=== PATIENT | male | born 1970 | race Caucasian/White ===

== ENCOUNTER 2021-11-25 08:49 | Day surgery (SDC) | payer BC ==
[~2021-11-25 08:49] MED LIST: Lactated Ringers 1,000 ML IV SCH
[2021-11-25] MEDS ORDERED: Citric Acid/Sodium Citrate Solution 30 ML Cup ONE (09:40)
[2021-11-25] MEDS: Citric Acid/Sodium Citrate Solution 30 ML Cup PO ONE ×2 (09:42→09:45)
[2021-11-25] MEDS ORDERED: fentaNYL 100 MCG/2 ML SDV ONE (09:44)
[2021-11-25] MEDS ORDERED: Propofol 200 MG/20 ML SDV ONE (09:44)
[2021-11-25 10:37] VITALS: BP 107/68; PULSE 61
== END 2021-11-25 11:40 | disposition home or self-care (01) ==
LOC: VM.SDS 08:49
PROVIDERS: ATTEND Surgery
DX: K22.70 Barrett's esophagus without dysplasia (principal); K21.00 Gastro-esophageal reflux disease with esophagitis, without bleeding; E66.01 Morbid (severe) obesity due to excess calories; Z88.5 Allergy status to narcotic agent; Z79.899 Other long term (current) drug therapy
CPT/HCPCS: 00731; A9270-GY; J2704; J3010; J7120

== ENCOUNTER 2023-05-12 16:19 | Emergency (ER) | payer BC ==
[2023-05-12] MEDS: fentaNYL 50 MCG/ML SDV IVPUSH ONE ×6 (16:39→21:15)
[2023-05-12] MEDS: Sodium Chloride 0.9% 1,000 ML IV SCH (16:45)
[2023-05-12 16:51] LABS: BASOPHILS ABSOLUTE AUTO 0.1 x10^3/uL (0.0-0.2); BASOPHILS PERCENT AUTO 0.6 % (0.2-1.2); EOSINOPHILS ABSOLUTE AUTO 0.1 x10^3/uL (0.0-0.5); EOSINOPHILS PERCENT AUTO 0.7 % (0.0-4.0); HEMOGLOBIN 16.7 g/dL (14.0-18.0); IMMATURE GRAN ABSOLUTE AUTO 0.02 x10^3/uL (0.00-0.07); LYMPHOCYTES ABSOLUTE AUTO 2.4 x10^3/uL (1.0-4.8); LYMPHOCYTES PERCENT AUTO 25.9 % (25.0-50.0); MEAN CORPUSCULAR HEMOGLOBIN 32.1 pg (26.0-32.0); MEAN CORPUSCULAR HGB CONC 34.8 g/dL (32.0-36.0); MEAN CORPUSCULAR VOLUME 92.3 fL (78.0-93.0); MONOCYTES ABSOLUTE AUTO 0.6 x10^3/uL (0.0-0.8); MONOCYTES PERCENT AUTO 6.7 % (2.0-11.0); NEUTROPHILS ABSOLUTE AUTO 6.2 x10^3/uL (1.8-7.7); NEUTROPHILS PERCENT AUTO 65.9 % (50.0-80.0); PLATELET COUNT,PLT 251 x10^3/uL (130-400); WHITE BLOOD CELL COUNT,WBC 9.4 x10^3/uL (4.0-10.0)
[2023-05-12 17:13] LABS: INR 0.9 (2.0-3.5); PROTHROMBIN TIME 10.2 SEC (9.5-12.2)
[2023-05-12 17:14] LABS: A/G RATIO 1.11; ALANINE AMINOTRANSFERASE,ALT 31 U/L (16-63); ALBUMIN 4.1 g/dL (3.4-5.0); ALKALINE PHOSPHATASE 80 U/L (46-116); ANION GAP 14.3 mmol/L (5-15); ASPARTATE AMNIOTRANSFERASE,AST 16 U/L (15-37); BILIRUBIN TOTAL 0.8 mg/dL (0.2-1.0); BLOOD UREA NITROGEN,BUN 20 mg/dL (7-18); CALCIUM 8.9 mg/dL (8.5-10.1); CARBON DIOXIDE,CO2 26 mmol/L (21-32); CHLORIDE,CL 107 mmol/L (98-107); CREATININE 1.2 mg/dL (0.70-1.30); ESTIMATED GFR 74 mL/min (>=60); GLUCOSE RANDOM 132 mg/dL (70-99); POTASSIUM,K 4.3 mmol/L (3.5-5.1); PROTEIN TOTAL,TP 7.8 g/dL (6.4-8.2); SODIUM,NA 143 mmol/L (136-145)
[2023-05-12] MEDS: Diphtheria,Pertussis(Acell),Tetanus Vaccine 0.5 ML Syringe IM ONE (19:01)
[2023-05-12] MEDS: ceFAZolin 1 GM Vial IVPUSH ONE (19:02)
== END 2023-05-12 21:20 | disposition short-term general hospital (02) ==
LOC: VM.ED 16:19
DX: S52.92XA Unspecified fracture of left forearm, initial encounter for closed fracture (principal); S92.002A Unspecified fracture of left calcaneus, initial encounter for closed fracture; S92.001A Unspecified fracture of right calcaneus, initial encounter for closed fracture; S92.351A Displaced fracture of fifth metatarsal bone, right foot, initial encounter for closed fracture; Z88.5 Allergy status to narcotic agent; W11.XXXA Fall on and from ladder, initial encounter
CPT/HCPCS: 29125; 29515; 73090; 73610; 73630; 80053; 85025; 85610; 85730; 90471; 90715; 96361; 96374; 96375; 96376; 99284; 99285; J0690; J3010; J7030

== ENCOUNTER 2023-05-19 15:34 | Inpatient (IN) | payer SELFPAY ==
[2023-05-19] MEDS ORDERED: Enoxaparin 30 MG/0.3 ML Syringe SUBCUT SCH (17:30)
[2023-05-19] MEDS ORDERED: Naloxone 0.4 MG/ML SDV NAS PRN (17:31)
[2023-05-19] MEDS ORDERED: Ondansetron 4 MG Tab.DIS PO PRN (17:31)
[2023-05-19] MEDS ORDERED: Menthol Lozenge PO PRN (17:31)
[2023-05-19] MEDS ORDERED: Loratadine 10 MG Tab PO PRN (17:31)
[2023-05-19] MEDS: oxyCODONE 5 MG Tab PO PRN ×2 (18:27→22:17)
[2023-05-19] MEDS: Omeprazole 20 MG Cap.CR PO SCH (22:05)
[2023-05-19] MEDS: Sennosides/Docusate Sodium 50-8.6 MG Tab PO SCH (22:06)
[2023-05-19] MEDS: Enoxaparin 30 MG/0.3 ML Syringe SUBCUT SCH (22:06)
[2023-05-19] MEDS: Acetaminophen 500 MG Tab PO SCH (22:06)
[2023-05-19] MEDS: Polyethylene Glycol 3350 Powder 17 GM Packet PO SCH (22:09)
[2023-05-20] MEDS: oxyCODONE 5 MG Tab PO PRN ×5 (03:03→21:09)
[2023-05-20 06:41] LABS: HEMOGLOBIN 11.4 g/dL (14.0-18.0); MEAN CORPUSCULAR HEMOGLOBIN 32.3 pg (26.0-32.0); MEAN CORPUSCULAR HGB CONC 33.5 g/dL (32.0-36.0); MEAN CORPUSCULAR VOLUME 96.3 fL (78.0-93.0); RED BLOOD CELL COUNT 3.53 x10^6/uL (4.5-6.0); WHITE BLOOD CELL COUNT,WBC 6.9 x10^3/uL (4.0-10.0)
[2023-05-20] MEDS: Sennosides/Docusate Sodium 50-8.6 MG Tab PO SCH ×2 (08:40→21:08)
[2023-05-20] MEDS: tiZANidine 4 MG Tab PO SCH (08:41)
[2023-05-20] MEDS: Ascorbic Acid 500 MG Tab PO SCH (08:41)
[2023-05-20] MEDS: Acetaminophen 500 MG Tab PO SCH ×3 (08:42→21:07)
[2023-05-20] MEDS: Cholecalciferol (Vitamin D3) 25 MCG Tab PO SCH (08:42)
[2023-05-20] MEDS: Enoxaparin 30 MG/0.3 ML Syringe SUBCUT SCH ×2 (08:43→21:06)
[2023-05-20] MEDS: Polyethylene Glycol 3350 Powder 17 GM Packet PO SCH ×2 (08:43→22:19)
[2023-05-20] MEDS: Omeprazole 20 MG Cap.CR PO SCH (21:08)
[2023-05-21] MEDS: oxyCODONE 5 MG Tab PO PRN ×5 (02:03→20:15)
[2023-05-21] MEDS: Ascorbic Acid 500 MG Tab PO SCH (08:32)
[2023-05-21] MEDS: Polyethylene Glycol 3350 Powder 17 GM Packet PO SCH ×3 (08:32→20:14)
[2023-05-21] MEDS: tiZANidine 4 MG Tab PO SCH (08:32)
[2023-05-21] MEDS: Enoxaparin 30 MG/0.3 ML Syringe SUBCUT SCH ×2 (08:32→20:14)
[2023-05-21] MEDS: Acetaminophen 500 MG Tab PO SCH ×3 (08:32→20:14)
[2023-05-21] MEDS: Cholecalciferol (Vitamin D3) 25 MCG Tab PO SCH (08:32)
[2023-05-21] MEDS: Sennosides/Docusate Sodium 50-8.6 MG Tab PO SCH (20:14)
[2023-05-21] MEDS: Omeprazole 20 MG Cap.CR PO SCH (20:14)
[2023-05-22] MEDS: oxyCODONE 5 MG Tab PO PRN ×3 (00:05→08:45)
[2023-05-22] MEDS: Polyethylene Glycol 3350 Powder 17 GM Packet PO SCH ×2 (08:44→21:56)
[2023-05-22] MEDS: Cholecalciferol (Vitamin D3) 25 MCG Tab PO SCH (08:46)
[2023-05-22] MEDS: tiZANidine 4 MG Tab PO SCH (08:46)
[2023-05-22] MEDS: Ascorbic Acid 500 MG Tab PO SCH (08:46)
[2023-05-22] MEDS: Acetaminophen 500 MG Tab PO SCH ×3 (08:46→21:57)
[2023-05-22] MEDS: Enoxaparin 30 MG/0.3 ML Syringe SUBCUT SCH ×2 (08:47→21:56)
[2023-05-22] MEDS: Sennosides/Docusate Sodium 50-8.6 MG Tab PO SCH (21:56)
[2023-05-22] MEDS: Omeprazole 20 MG Cap.CR PO SCH (21:56)
[2023-05-23 07:54] LABS: HEMATOCRIT 36.9 % (40.0-52.0); HEMOGLOBIN 12.3 g/dL (14.0-18.0); MEAN CORPUSCULAR HEMOGLOBIN 31.7 pg (26.0-32.0); MEAN CORPUSCULAR HGB CONC 33.3 g/dL (32.0-36.0); MEAN CORPUSCULAR VOLUME 95.1 fL (78.0-93.0); RED BLOOD CELL COUNT 3.88 x10^6/uL (4.5-6.0); WHITE BLOOD CELL COUNT,WBC 8.1 x10^3/uL (4.0-10.0)
[2023-05-23] MEDS: Acetaminophen 500 MG Tab PO SCH ×3 (08:34→21:04)
[2023-05-23] MEDS: Ascorbic Acid 500 MG Tab PO SCH (08:37)
[2023-05-23] MEDS: Cholecalciferol (Vitamin D3) 25 MCG Tab PO SCH (08:38)
[2023-05-23] MEDS: tiZANidine 4 MG Tab PO SCH (08:38)
[2023-05-23] MEDS: Enoxaparin 30 MG/0.3 ML Syringe SUBCUT SCH ×2 (08:40→21:06)
[2023-05-23] MEDS: Polyethylene Glycol 3350 Powder 17 GM Packet PO SCH ×2 (08:41→21:06)
[2023-05-23] MEDS: Omeprazole 20 MG Cap.CR PO SCH (21:05)
[2023-05-23] MEDS: Sennosides/Docusate Sodium 50-8.6 MG Tab PO SCH (21:05)
[2023-05-24] MEDS: tiZANidine 4 MG Tab PO SCH (09:56)
[2023-05-24] MEDS: Ascorbic Acid 500 MG Tab PO SCH (09:56)
[2023-05-24] MEDS: Cholecalciferol (Vitamin D3) 25 MCG Tab PO SCH (09:57)
[2023-05-24] MEDS: Acetaminophen 500 MG Tab PO SCH ×3 (09:57→21:15)
[2023-05-24] MEDS: Polyethylene Glycol 3350 Powder 17 GM Packet PO SCH ×2 (09:58→21:16)
[2023-05-24] MEDS: Enoxaparin 30 MG/0.3 ML Syringe SUBCUT SCH ×2 (10:00→21:17)
[2023-05-24] MEDS: Sennosides/Docusate Sodium 50-8.6 MG Tab PO SCH (21:15)
[2023-05-24] MEDS: Omeprazole 20 MG Cap.CR PO SCH (21:15)
[2023-05-25] MEDS: Ascorbic Acid 500 MG Tab PO SCH (08:23)
[2023-05-25] MEDS: Cholecalciferol (Vitamin D3) 25 MCG Tab PO SCH (08:23)
[2023-05-25] MEDS: tiZANidine 4 MG Tab PO SCH (08:23)
[2023-05-25] MEDS: Acetaminophen 500 MG Tab PO SCH (08:24)
[2023-05-25] MEDS: Enoxaparin 30 MG/0.3 ML Syringe SUBCUT SCH ×2 (08:26→21:29)
[2023-05-25] MEDS: Polyethylene Glycol 3350 Powder 17 GM Packet PO SCH ×2 (08:30→21:30)
[2023-05-25] MEDS: Acetaminophen 650 MG Tab.ER PO SCH ×2 (16:02→23:17)
[2023-05-25] MEDS: Omeprazole 20 MG Cap.CR PO SCH (21:29)
[2023-05-25] MEDS: Sennosides/Docusate Sodium 50-8.6 MG Tab PO SCH (21:29)
[2023-05-26 07:00] LABS: HEMATOCRIT 37.7 % (40.0-52.0); HEMOGLOBIN 12.9 g/dL (14.0-18.0); MEAN CORPUSCULAR HEMOGLOBIN 32.5 pg (26.0-32.0); MEAN CORPUSCULAR HGB CONC 34.2 g/dL (32.0-36.0); RED BLOOD CELL COUNT 3.97 x10^6/uL (4.5-6.0); WHITE BLOOD CELL COUNT,WBC 7.1 x10^3/uL (4.0-10.0)
[2023-05-26] MEDS: tiZANidine 4 MG Tab PO SCH (09:03)
[2023-05-26] MEDS: Acetaminophen 650 MG Tab.ER PO SCH ×3 (09:03→23:51)
[2023-05-26] MEDS: Cholecalciferol (Vitamin D3) 25 MCG Tab PO SCH (09:04)
[2023-05-26] MEDS: Ascorbic Acid 500 MG Tab PO SCH (09:04)
[2023-05-26] MEDS: Polyethylene Glycol 3350 Powder 17 GM Packet PO SCH ×2 (09:04→20:22)
[2023-05-26] MEDS: Enoxaparin 30 MG/0.3 ML Syringe SUBCUT SCH ×2 (09:04→20:18)
[2023-05-26] MEDS: Omeprazole 20 MG Cap.CR PO SCH (20:18)
[2023-05-26] MEDS: Sennosides/Docusate Sodium 50-8.6 MG Tab PO SCH (20:22)
[2023-05-27] MEDS: Acetaminophen 650 MG Tab.ER PO SCH ×3 (08:04→23:14)
[2023-05-27] MEDS: Enoxaparin 30 MG/0.3 ML Syringe SUBCUT SCH ×2 (08:05→20:57)
[2023-05-27] MEDS: tiZANidine 4 MG Tab PO SCH (08:05)
[2023-05-27] MEDS: Polyethylene Glycol 3350 Powder 17 GM Packet PO SCH ×2 (08:06→21:38)
[2023-05-27] MEDS: Cholecalciferol (Vitamin D3) 25 MCG Tab PO SCH (08:06)
[2023-05-27] MEDS: Ascorbic Acid 500 MG Tab PO SCH (08:06)
[2023-05-27] MEDS: Omeprazole 20 MG Cap.CR PO SCH (20:57)
[2023-05-27] MEDS: Sennosides/Docusate Sodium 50-8.6 MG Tab PO SCH (21:38)
[2023-05-28] MEDS: Acetaminophen 650 MG Tab.ER PO SCH ×2 (08:08→17:00)
[2023-05-28] MEDS: Cholecalciferol (Vitamin D3) 25 MCG Tab PO SCH (08:09)
[2023-05-28] MEDS: Ascorbic Acid 500 MG Tab PO SCH (08:09)
[2023-05-28] MEDS: Polyethylene Glycol 3350 Powder 17 GM Packet PO SCH ×2 (08:10→20:50)
[2023-05-28] MEDS: tiZANidine 4 MG Tab PO SCH (08:10)
[2023-05-28] MEDS: Enoxaparin 30 MG/0.3 ML Syringe SUBCUT SCH ×2 (08:10→20:50)
[2023-05-28] MEDS: Omeprazole 20 MG Cap.CR PO SCH (20:50)
[2023-05-28] MEDS: Sennosides/Docusate Sodium 50-8.6 MG Tab PO SCH (21:23)
[2023-05-29] MEDS: Acetaminophen 650 MG Tab.ER PO SCH ×4 (00:31→23:50)
[2023-05-29 06:56] LABS: HEMATOCRIT 38.3 % (40.0-52.0); HEMOGLOBIN 12.6 g/dL (14.0-18.0); MEAN CORPUSCULAR HEMOGLOBIN 31.7 pg (26.0-32.0); MEAN CORPUSCULAR HGB CONC 32.9 g/dL (32.0-36.0); MEAN CORPUSCULAR VOLUME 96.5 fL (78.0-93.0); RED BLOOD CELL COUNT 3.97 x10^6/uL (4.5-6.0); WHITE BLOOD CELL COUNT,WBC 8.1 x10^3/uL (4.0-10.0)
[2023-05-29] MEDS: tiZANidine 4 MG Tab PO SCH (09:34)
[2023-05-29] MEDS: Ascorbic Acid 500 MG Tab PO SCH (09:35)
[2023-05-29] MEDS: Polyethylene Glycol 3350 Powder 17 GM Packet PO SCH ×2 (09:35→20:45)
[2023-05-29] MEDS: Cholecalciferol (Vitamin D3) 25 MCG Tab PO SCH (09:36)
[2023-05-29] MEDS: Enoxaparin 30 MG/0.3 ML Syringe SUBCUT SCH ×2 (09:37→20:46)
[2023-05-29] MEDS: Sennosides/Docusate Sodium 50-8.6 MG Tab PO SCH ×2 (20:46→20:52)
[2023-05-29] MEDS: Omeprazole 20 MG Cap.CR PO SCH (20:47)
[2023-05-30] MEDS: Acetaminophen 650 MG Tab.ER PO SCH ×3 (08:53→23:45)
[2023-05-30] MEDS: tiZANidine 4 MG Tab PO SCH (08:54)
[2023-05-30] MEDS: Polyethylene Glycol 3350 Powder 17 GM Packet PO SCH ×2 (08:55→21:23)
[2023-05-30] MEDS: Cholecalciferol (Vitamin D3) 25 MCG Tab PO SCH (08:55)
[2023-05-30] MEDS: Ascorbic Acid 500 MG Tab PO SCH (08:56)
[2023-05-30] MEDS: Enoxaparin 30 MG/0.3 ML Syringe SUBCUT SCH ×2 (08:57→21:25)
[2023-05-30] MEDS: Omeprazole 20 MG Cap.CR PO SCH (21:24)
[2023-05-30] MEDS: Sennosides/Docusate Sodium 50-8.6 MG Tab PO SCH (21:25)
[2023-05-31] MEDS: Acetaminophen 650 MG Tab.ER PO SCH ×3 (08:29→23:57)
[2023-05-31] MEDS: Cholecalciferol (Vitamin D3) 25 MCG Tab PO SCH (08:30)
[2023-05-31] MEDS: tiZANidine 4 MG Tab PO SCH (08:31)
[2023-05-31] MEDS: Ascorbic Acid 500 MG Tab PO SCH (08:31)
[2023-05-31] MEDS: Polyethylene Glycol 3350 Powder 17 GM Packet PO SCH ×2 (08:33→20:01)
[2023-05-31] MEDS: Enoxaparin 30 MG/0.3 ML Syringe SUBCUT SCH ×2 (08:33→20:01)
[2023-05-31] MEDS ORDERED: Sennosides/Docusate Sodium 50-8.6 MG Tab PO PRN (09:48)
[2023-05-31] MEDS: Omeprazole 20 MG Cap.CR PO SCH (20:02)
[2023-06-01 06:43] LABS: HEMATOCRIT 39.2 % (40.0-52.0); MEAN CORPUSCULAR HEMOGLOBIN 31.6 pg (26.0-32.0); MEAN CORPUSCULAR HGB CONC 33.2 g/dL (32.0-36.0); MEAN CORPUSCULAR VOLUME 95.4 fL (78.0-93.0); RED BLOOD CELL COUNT 4.11 x10^6/uL (4.5-6.0); WHITE BLOOD CELL COUNT,WBC 6.5 x10^3/uL (4.0-10.0)
[2023-06-01] MEDS: Enoxaparin 30 MG/0.3 ML Syringe SUBCUT SCH ×2 (08:32→21:28)
[2023-06-01] MEDS: tiZANidine 4 MG Tab PO SCH (08:33)
[2023-06-01] MEDS: Cholecalciferol (Vitamin D3) 25 MCG Tab PO SCH (08:34)
[2023-06-01] MEDS: Acetaminophen 650 MG Tab.ER PO SCH ×2 (08:34→17:46)
[2023-06-01] MEDS: Ascorbic Acid 500 MG Tab PO SCH (08:35)
[2023-06-01] MEDS: Omeprazole 20 MG Cap.CR PO SCH (21:28)
[2023-06-01] MEDS: Polyethylene Glycol 3350 Powder 17 GM Packet PO SCH (21:29)
[2023-06-02] MEDS: Acetaminophen 650 MG Tab.ER PO SCH ×4 (01:19→23:04)
[2023-06-02] MEDS: Enoxaparin 30 MG/0.3 ML Syringe SUBCUT SCH ×2 (08:31→21:55)
[2023-06-02] MEDS: Ascorbic Acid 500 MG Tab PO SCH (08:33)
[2023-06-02] MEDS: Cholecalciferol (Vitamin D3) 25 MCG Tab PO SCH (08:33)
[2023-06-02] MEDS: tiZANidine 4 MG Tab PO SCH (08:33)
[2023-06-02] MEDS: oxyCODONE 5 MG Tab PO PRN (20:45)
[2023-06-02] MEDS: Omeprazole 20 MG Cap.CR PO SCH (21:54)
[2023-06-02] MEDS: Polyethylene Glycol 3350 Powder 17 GM Packet PO SCH (21:56)
[2023-06-03] MEDS: oxyCODONE 5 MG Tab PO PRN (00:46)
[2023-06-03] MEDS: tiZANidine 4 MG Tab PO SCH (08:41)
[2023-06-03] MEDS: Acetaminophen 650 MG Tab.ER PO SCH ×3 (08:41→23:21)
[2023-06-03] MEDS: Cholecalciferol (Vitamin D3) 25 MCG Tab PO SCH (08:42)
[2023-06-03] MEDS: Enoxaparin 30 MG/0.3 ML Syringe SUBCUT SCH ×2 (08:42→21:10)
[2023-06-03] MEDS: Ascorbic Acid 500 MG Tab PO SCH (08:50)
[2023-06-03] MEDS: Polyethylene Glycol 3350 Powder 17 GM Packet PO SCH (21:10)
[2023-06-03] MEDS: Omeprazole 20 MG Cap.CR PO SCH (21:11)
[2023-06-04 06:45] LABS: HEMATOCRIT 39.7 % (40.0-52.0); HEMOGLOBIN 13.2 g/dL (14.0-18.0); MEAN CORPUSCULAR HEMOGLOBIN 31.5 pg (26.0-32.0); MEAN CORPUSCULAR HGB CONC 33.2 g/dL (32.0-36.0); MEAN CORPUSCULAR VOLUME 94.7 fL (78.0-93.0); RED BLOOD CELL COUNT 4.19 x10^6/uL (4.5-6.0); WHITE BLOOD CELL COUNT,WBC 7.8 x10^3/uL (4.0-10.0)
[2023-06-04] MEDS: Enoxaparin 30 MG/0.3 ML Syringe SUBCUT SCH ×3 (07:53→22:13)
[2023-06-04] MEDS: tiZANidine 4 MG Tab PO SCH (07:59)
[2023-06-04] MEDS: Acetaminophen 650 MG Tab.ER PO SCH ×3 (08:03→23:07)
[2023-06-04] MEDS: Ascorbic Acid 500 MG Tab PO SCH (08:03)
[2023-06-04] MEDS: Cholecalciferol (Vitamin D3) 25 MCG Tab PO SCH (08:04)
[2023-06-04] MEDS: Omeprazole 20 MG Cap.CR PO SCH (22:13)
[2023-06-04] MEDS: Polyethylene Glycol 3350 Powder 17 GM Packet PO SCH (22:13)
[2023-06-05] MEDS: Acetaminophen 650 MG Tab.ER PO SCH ×2 (08:20→16:15)
[2023-06-05] MEDS: Cholecalciferol (Vitamin D3) 25 MCG Tab PO SCH (08:21)
[2023-06-05] MEDS: tiZANidine 4 MG Tab PO SCH (08:24)
[2023-06-05] MEDS: Ascorbic Acid 500 MG Tab PO SCH (08:28)
[2023-06-05] MEDS: Enoxaparin 30 MG/0.3 ML Syringe SUBCUT SCH ×2 (08:29→20:32)
[2023-06-05] MEDS: Polyethylene Glycol 3350 Powder 17 GM Packet PO SCH (20:31)
[2023-06-05] MEDS: Omeprazole 20 MG Cap.CR PO SCH (20:32)
[2023-06-06] MEDS: Acetaminophen 650 MG Tab.ER PO SCH ×3 (00:56→16:37)
[2023-06-06] MEDS: Cholecalciferol (Vitamin D3) 25 MCG Tab PO SCH (08:27)
[2023-06-06] MEDS: tiZANidine 4 MG Tab PO SCH (08:28)
[2023-06-06] MEDS: Ascorbic Acid 500 MG Tab PO SCH (08:30)
[2023-06-06] MEDS: Enoxaparin 30 MG/0.3 ML Syringe SUBCUT SCH ×2 (08:30→20:53)
[2023-06-06] MEDS ORDERED: Doxycycline Monohydrate 100 MG Cap PO SCH (09:00)
[2023-06-06] MEDS: Doxycycline Monohydrate 100 MG Cap PO SCH ×2 (14:02→20:52)
[2023-06-06] MEDS: Polyethylene Glycol 3350 Powder 17 GM Packet PO SCH (20:50)
[2023-06-06] MEDS: Omeprazole 20 MG Cap.CR PO SCH (20:52)
[2023-06-07] MEDS: Acetaminophen 650 MG Tab.ER PO SCH ×3 (00:55→17:35)
[2023-06-07 08:07] LABS: HEMATOCRIT 41.2 % (40.0-52.0); HEMOGLOBIN 13.7 g/dL (14.0-18.0); MEAN CORPUSCULAR HEMOGLOBIN 31.8 pg (26.0-32.0); MEAN CORPUSCULAR HGB CONC 33.3 g/dL (32.0-36.0); MEAN CORPUSCULAR VOLUME 95.6 fL (78.0-93.0); RED BLOOD CELL COUNT 4.31 x10^6/uL (4.5-6.0); WHITE BLOOD CELL COUNT,WBC 6.5 x10^3/uL (4.0-10.0)
[2023-06-07] MEDS: Cholecalciferol (Vitamin D3) 25 MCG Tab PO SCH (09:23)
[2023-06-07] MEDS: tiZANidine 4 MG Tab PO SCH (09:25)
[2023-06-07] MEDS: Ascorbic Acid 500 MG Tab PO SCH (09:27)
[2023-06-07] MEDS: Doxycycline Monohydrate 100 MG Cap PO SCH ×2 (09:27→20:11)
[2023-06-07] MEDS: Enoxaparin 30 MG/0.3 ML Syringe SUBCUT SCH ×2 (09:29→20:10)
[2023-06-07] MEDS: Polyethylene Glycol 3350 Powder 17 GM Packet PO SCH (20:10)
[2023-06-07] MEDS: Omeprazole 20 MG Cap.CR PO SCH (20:11)
[2023-06-08] MEDS: Acetaminophen 650 MG Tab.ER PO SCH ×3 (00:56→16:02)
[2023-06-08] MEDS: tiZANidine 4 MG Tab PO SCH (08:15)
[2023-06-08] MEDS: Ascorbic Acid 500 MG Tab PO SCH (08:16)
[2023-06-08] MEDS: Doxycycline Monohydrate 100 MG Cap PO SCH ×2 (08:16→21:03)
[2023-06-08] MEDS: Cholecalciferol (Vitamin D3) 25 MCG Tab PO SCH (08:17)
[2023-06-08] MEDS: Enoxaparin 30 MG/0.3 ML Syringe SUBCUT SCH ×2 (08:18→21:02)
[2023-06-08] MEDS: Omeprazole 20 MG Cap.CR PO SCH (21:03)
[2023-06-08] MEDS: Polyethylene Glycol 3350 Powder 17 GM Packet PO SCH (21:03)
[2023-06-09] MEDS: Acetaminophen 650 MG Tab.ER PO SCH ×4 (00:58→16:49)
[2023-06-09] MEDS: oxyCODONE 5 MG Tab PO PRN (06:26)
[2023-06-09] MEDS: Enoxaparin 30 MG/0.3 ML Syringe SUBCUT SCH ×3 (06:28→21:35)
[2023-06-09] MEDS: Doxycycline Monohydrate 100 MG Cap PO SCH ×3 (06:28→21:34)
[2023-06-09] MEDS: Cholecalciferol (Vitamin D3) 25 MCG Tab PO SCH ×2 (06:30→16:52)
[2023-06-09] MEDS: tiZANidine 4 MG Tab PO SCH ×2 (06:30→16:52)
[2023-06-09] MEDS: Ascorbic Acid 500 MG Tab PO SCH ×2 (06:31→16:51)
[2023-06-09] MEDS: Polyethylene Glycol 3350 Powder 17 GM Packet PO SCH (21:32)
[2023-06-09] MEDS: Omeprazole 20 MG Cap.CR PO SCH (21:34)
[2023-06-10] MEDS: Acetaminophen 650 MG Tab.ER PO SCH ×4 (01:16→23:46)
[2023-06-10 07:04] LABS: HEMATOCRIT 40.1 % (40.0-52.0); HEMOGLOBIN 13.3 g/dL (14.0-18.0); MEAN CORPUSCULAR HEMOGLOBIN 31.2 pg (26.0-32.0); MEAN CORPUSCULAR HGB CONC 33.2 g/dL (32.0-36.0); MEAN CORPUSCULAR VOLUME 94.1 fL (78.0-93.0); RED BLOOD CELL COUNT 4.26 x10^6/uL (4.5-6.0); WHITE BLOOD CELL COUNT,WBC 5.7 x10^3/uL (4.0-10.0)
[2023-06-10] MEDS: Ascorbic Acid 500 MG Tab PO SCH (08:13)
[2023-06-10] MEDS: tiZANidine 4 MG Tab PO SCH (08:15)
[2023-06-10] MEDS: Doxycycline Monohydrate 100 MG Cap PO SCH ×2 (08:15→20:42)
[2023-06-10] MEDS: Cholecalciferol (Vitamin D3) 25 MCG Tab PO SCH (08:16)
[2023-06-10] MEDS: Enoxaparin 30 MG/0.3 ML Syringe SUBCUT SCH ×2 (08:18→20:43)
[2023-06-10] MEDS ORDERED: tiZANidine 4 MG Tab PO PRN (12:30)
[2023-06-10] MEDS: Polyethylene Glycol 3350 Powder 17 GM Packet PO SCH (20:42)
[2023-06-10] MEDS: Omeprazole 20 MG Cap.CR PO SCH (20:42)
[2023-06-11] MEDS: Enoxaparin 30 MG/0.3 ML Syringe SUBCUT SCH (08:56)
[2023-06-11] MEDS: Ascorbic Acid 500 MG Tab PO SCH (08:56)
[2023-06-11] MEDS: Doxycycline Monohydrate 100 MG Cap PO SCH (08:57)
[2023-06-11] MEDS: Acetaminophen 650 MG Tab.ER PO SCH ×3 (08:57→23:16)
[2023-06-11] MEDS: Cholecalciferol (Vitamin D3) 25 MCG Tab PO SCH (08:57)
[2023-06-11] MEDS: Polyethylene Glycol 3350 Powder 17 GM Packet PO SCH (20:18)
[2023-06-11] MEDS: Omeprazole 20 MG Cap.CR PO SCH (20:18)
[2023-06-11] MEDS: DOXYCYCLINE MONOHYDRATE 100 MG PO SCH (20:22)
[2023-06-11] MEDS: ENOXAPARIN 30 MG/0.3 ML SUBCUT SCH (20:26)
[2023-06-12] MEDS: Cholecalciferol (Vitamin D3) 25 MCG Tab PO SCH (08:33)
[2023-06-12] MEDS: Acetaminophen 650 MG Tab.ER PO SCH ×3 (08:34→23:04)
[2023-06-12] MEDS: Ascorbic Acid 500 MG Tab PO SCH (08:34)
[2023-06-12] MEDS: ENOXAPARIN 30 MG/0.3 ML SUBCUT SCH ×2 (08:35→20:39)
[2023-06-12] MEDS: DOXYCYCLINE MONOHYDRATE 100 MG PO SCH ×2 (08:36→20:38)
[2023-06-12] MEDS: Polyethylene Glycol 3350 Powder 17 GM Packet PO SCH (20:36)
[2023-06-12] MEDS: Omeprazole 20 MG Cap.CR PO SCH (20:36)
[2023-06-13 07:37] LABS: HEMOGLOBIN 13.8 g/dL (14.0-18.0); MEAN CORPUSCULAR HEMOGLOBIN 31.7 pg (26.0-32.0); MEAN CORPUSCULAR HGB CONC 33.7 g/dL (32.0-36.0); RED BLOOD CELL COUNT 4.36 x10^6/uL (4.5-6.0); WHITE BLOOD CELL COUNT,WBC 5.7 x10^3/uL (4.0-10.0)
[2023-06-13] MEDS: Cholecalciferol (Vitamin D3) 25 MCG Tab PO SCH (08:44)
[2023-06-13] MEDS: Acetaminophen 650 MG Tab.ER PO SCH ×3 (08:44→23:03)
[2023-06-13] MEDS: ENOXAPARIN 30 MG/0.3 ML SUBCUT SCH ×2 (08:45→20:51)
[2023-06-13] MEDS: Ascorbic Acid 500 MG Tab PO SCH (08:45)
[2023-06-13] MEDS: Omeprazole 20 MG Cap.CR PO SCH (20:47)
[2023-06-13] MEDS: Polyethylene Glycol 3350 Powder 17 GM Packet PO SCH (20:50)
[2023-06-14] MEDS: Ascorbic Acid 500 MG Tab PO SCH (08:35)
[2023-06-14] MEDS: Cholecalciferol (Vitamin D3) 25 MCG Tab PO SCH (08:35)
[2023-06-14] MEDS: Acetaminophen 650 MG Tab.ER PO SCH ×2 (08:35→16:53)
[2023-06-14] MEDS: ENOXAPARIN 30 MG/0.3 ML SUBCUT SCH ×2 (08:36→20:04)
[2023-06-14] MEDS: Omeprazole 20 MG Cap.CR PO SCH (20:02)
[2023-06-14] MEDS: Polyethylene Glycol 3350 Powder 17 GM Packet PO SCH (20:04)
[2023-06-15] MEDS: Acetaminophen 650 MG Tab.ER PO SCH ×3 (01:48→17:16)
[2023-06-15] MEDS: Ascorbic Acid 500 MG Tab PO SCH (08:17)
[2023-06-15] MEDS: Cholecalciferol (Vitamin D3) 25 MCG Tab PO SCH (08:17)
[2023-06-15] MEDS: ENOXAPARIN 30 MG/0.3 ML SUBCUT SCH ×2 (08:18→20:27)
[2023-06-15] MEDS: Polyethylene Glycol 3350 Powder 17 GM Packet PO SCH (20:26)
[2023-06-15] MEDS: Omeprazole 20 MG Cap.CR PO SCH (20:26)
[2023-06-16] MEDS: Acetaminophen 650 MG Tab.ER PO SCH ×4 (01:07→23:14)
[2023-06-16 07:02] LABS: HEMATOCRIT 40.5 % (40.0-52.0); HEMOGLOBIN 13.8 g/dL (14.0-18.0); MEAN CORPUSCULAR HEMOGLOBIN 31.6 pg (26.0-32.0); MEAN CORPUSCULAR HGB CONC 34.1 g/dL (32.0-36.0); MEAN CORPUSCULAR VOLUME 92.7 fL (78.0-93.0); RED BLOOD CELL COUNT 4.37 x10^6/uL (4.5-6.0); WHITE BLOOD CELL COUNT,WBC 5.7 x10^3/uL (4.0-10.0)
[2023-06-16] MEDS: Cholecalciferol (Vitamin D3) 25 MCG Tab PO SCH (08:39)
[2023-06-16] MEDS: Ascorbic Acid 500 MG Tab PO SCH (08:40)
[2023-06-16] MEDS: ENOXAPARIN 30 MG/0.3 ML SUBCUT SCH ×2 (08:42→21:09)
[2023-06-16] MEDS: Omeprazole 20 MG Cap.CR PO SCH (21:08)
[2023-06-16] MEDS: Polyethylene Glycol 3350 Powder 17 GM Packet PO SCH (21:08)
[2023-06-17] MEDS: Acetaminophen 650 MG Tab.ER PO SCH ×2 (08:30→16:34)
[2023-06-17] MEDS: ENOXAPARIN 30 MG/0.3 ML SUBCUT SCH ×2 (08:32→21:16)
[2023-06-17] MEDS: Ascorbic Acid 500 MG Tab PO SCH (08:34)
[2023-06-17] MEDS: Cholecalciferol (Vitamin D3) 25 MCG Tab PO SCH (08:35)
[2023-06-17] MEDS: Omeprazole 20 MG Cap.CR PO SCH (21:14)
[2023-06-17] MEDS: Polyethylene Glycol 3350 Powder 17 GM Packet PO SCH (21:14)
[2023-06-18] MEDS: Acetaminophen 650 MG Tab.ER PO SCH ×2 (01:38→08:35)
[2023-06-18] MEDS: Cholecalciferol (Vitamin D3) 25 MCG Tab PO SCH (08:32)
[2023-06-18] MEDS: Ascorbic Acid 500 MG Tab PO SCH (08:33)
[2023-06-18] MEDS: ENOXAPARIN 30 MG/0.3 ML SUBCUT SCH ×2 (08:34→21:01)
[2023-06-18] MEDS: Acetaminophen 650 MG Tab.ER PO PRN (17:54)
[2023-06-18] MEDS: Polyethylene Glycol 3350 Powder 17 GM Packet PO SCH (20:59)
[2023-06-18] MEDS: Omeprazole 20 MG Cap.CR PO SCH (20:59)
[2023-06-19] MEDS: Acetaminophen 650 MG Tab.ER PO PRN (03:59)
[2023-06-19 06:49] LABS: HEMATOCRIT 41.9 % (40.0-52.0); HEMOGLOBIN 14.3 g/dL (14.0-18.0); MEAN CORPUSCULAR HEMOGLOBIN 31.6 pg (26.0-32.0); MEAN CORPUSCULAR HGB CONC 34.1 g/dL (32.0-36.0); MEAN CORPUSCULAR VOLUME 92.7 fL (78.0-93.0); RED BLOOD CELL COUNT 4.52 x10^6/uL (4.5-6.0); WHITE BLOOD CELL COUNT,WBC 7.1 x10^3/uL (4.0-10.0)
[2023-06-19] MEDS: TIZANIDINE 2 MG PO PRN (08:12)
[2023-06-19] MEDS: ENOXAPARIN 30 MG/0.3 ML SUBCUT SCH ×2 (08:13→20:17)
[2023-06-19] MEDS: Cholecalciferol (Vitamin D3) 25 MCG Tab PO SCH (08:14)
[2023-06-19] MEDS: Ascorbic Acid 500 MG Tab PO SCH (08:14)
[2023-06-19] MEDS: Polyethylene Glycol 3350 Powder 17 GM Packet PO SCH (20:17)
[2023-06-19] MEDS: Omeprazole 20 MG Cap.CR PO SCH (20:17)
[2023-06-20] MEDS: ENOXAPARIN 30 MG/0.3 ML SUBCUT SCH ×2 (09:05→21:20)
[2023-06-20] MEDS: Cholecalciferol (Vitamin D3) 25 MCG Tab PO SCH (09:05)
[2023-06-20] MEDS: Ascorbic Acid 500 MG Tab PO SCH (09:06)
[2023-06-20] MEDS: Polyethylene Glycol 3350 Powder 17 GM Packet PO SCH (21:18)
[2023-06-20] MEDS: Omeprazole 20 MG Cap.CR PO SCH (21:19)
[2023-06-21] MEDS: Cholecalciferol (Vitamin D3) 25 MCG Tab PO SCH (08:20)
[2023-06-21] MEDS: Ascorbic Acid 500 MG Tab PO SCH (08:21)
[2023-06-21] MEDS: ENOXAPARIN 30 MG/0.3 ML SUBCUT SCH ×2 (08:23→20:18)
[2023-06-21] MEDS: Polyethylene Glycol 3350 Powder 17 GM Packet PO SCH (20:18)
[2023-06-21] MEDS: Omeprazole 20 MG Cap.CR PO SCH (20:18)
[2023-06-22] MEDS: ENOXAPARIN 30 MG/0.3 ML SUBCUT SCH ×2 (09:06→21:14)
[2023-06-22] MEDS: Ascorbic Acid 500 MG Tab PO SCH (09:07)
[2023-06-22] MEDS: Cholecalciferol (Vitamin D3) 25 MCG Tab PO SCH (09:07)
[2023-06-22] MEDS: Omeprazole 20 MG Cap.CR PO SCH (21:13)
[2023-06-22] MEDS: Polyethylene Glycol 3350 Powder 17 GM Packet PO SCH (21:13)
[2023-06-23] MEDS: Cholecalciferol (Vitamin D3) 25 MCG Tab PO SCH (08:51)
[2023-06-23] MEDS: Ascorbic Acid 500 MG Tab PO SCH (08:51)
[2023-06-23] MEDS: ENOXAPARIN 30 MG/0.3 ML SUBCUT SCH ×2 (08:52→21:14)
[2023-06-23] MEDS: Omeprazole 20 MG Cap.CR PO SCH (21:14)
[2023-06-23] MEDS: Polyethylene Glycol 3350 Powder 17 GM Packet PO SCH (21:15)
[2023-06-24] MEDS: Cholecalciferol (Vitamin D3) 25 MCG Tab PO SCH (09:12)
[2023-06-24] MEDS: Ascorbic Acid 500 MG Tab PO SCH (09:12)
[2023-06-24] MEDS: ENOXAPARIN 30 MG/0.3 ML SUBCUT SCH ×2 (09:12→20:30)
[2023-06-24] MEDS: Polyethylene Glycol 3350 Powder 17 GM Packet PO SCH (20:30)
[2023-06-24] MEDS: Omeprazole 20 MG Cap.CR PO SCH (20:30)
[2023-06-24] MEDS: TIZANIDINE 2 MG PO PRN (21:26)
[2023-06-25] MEDS: Cholecalciferol (Vitamin D3) 25 MCG Tab PO SCH (08:16)
[2023-06-25] MEDS: Ascorbic Acid 500 MG Tab PO SCH (08:17)
[2023-06-25] MEDS: ENOXAPARIN 30 MG/0.3 ML SUBCUT SCH (08:19)
== END 2023-06-25 18:35 | disposition home or self-care (01) | DRG 561 ==
LOC: VM.MS 16:34
PROVIDERS: ADMIT Family Medicine; ATTEND Family Medicine
DX: Z47.89 Encounter for other orthopedic aftercare (principal); S92.002D Unspecified fracture of left calcaneus, subsequent encounter for fracture with routine healing; S92.001D Unspecified fracture of right calcaneus, subsequent encounter for fracture with routine healing; S62.102D Fracture of unspecified carpal bone, left wrist, subsequent encounter for fracture with routine healing; S92.351D Displaced fracture of fifth metatarsal bone, right foot, subsequent encounter for fracture with routine healing; K21.9 Gastro-esophageal reflux disease without esophagitis; E66.01 Morbid (severe) obesity due to excess calories; F17.220 Nicotine dependence, chewing tobacco, uncomplicated; D50.0 Iron deficiency anemia secondary to blood loss (chronic); N28.89 Other specified disorders of kidney and ureter; G47.33 Obstructive sleep apnea (adult) (pediatric); Z68.36 Body mass index [BMI] 36.0-36.9, adult; Z98.890 Other specified postprocedural states; W11.XXXD Fall on and from ladder, subsequent encounter
CPT/HCPCS: 36415; 73110-LT; 85027; 95851-GO; 97110-GP; 97162-GP; 97166-GO; 97530-GP; 97535-GO; A9270-GY; J1650